=== PATIENT | male | born 1995 | race Caucasian/White ===

== ENCOUNTER 2020-02-04 08:20 | Emergency (ER) | payer OTHER, SELFPAY ==
[2020-02-04 08:24] VITALS: BMI 44.7
[2020-02-04 08:28] VITALS: BP 167/95; PULSE 76; RESP 18; TEMP 36.9; O2SAT 97
--- NOTE | 2020-02-04 08:54 | XR_ITS ---
WS: [id number] PORTABLE CHEST HISTORY: chest pain COMPARISON: 12/20/2018 Lungs are clear and well expanded. No pleural effusion or pneumothorax. Cardiac size: Normal. Mediastinum/Aorta: Normal mediastinum. No osseous abnormality seen. XR/XR chest 1V portable [id number] IMPRESSION: Unremarkable portable chest.
--- NOTE | 2020-02-04 08:54 | ECG_ITS ---
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 Measurements Intervals [place] Rate: 71 P: 32 [place]: 144 QRS: 52 QRSD: 105 T: 36 QT: 347 QTc: 379 Interpretive Statements SINUS RHYTHM Compared to ECG 12/20/2018 17:11:55 Sinus tachycardia no longer present Electronically Signed On 02-05-2020 16:28:28 CDT by Ramón Aburto M.D. [id number]
--- NOTE | 2020-02-04 08:54 | W.ED.CHESTPA ---
HPI - Chest Pain General: Chief Complaint: Chest Pain Stated Complaint: elevated bp Time Seen by Provider: 02/04/20 08:28 Source: patient Mode of arrival: ambulatory Limitations: no limitations History of Present Illness: HPI narrative: Patient is a 24-year-old male presents to ED today with a complaint of chest pain. Patient tells me he initially began noticing substernal pain earlier this morning while he was in a meeting at work. Patient states after work he was lifting some pipes that were fairly light but noticed he became short of breath. He states chest pain upon arrival has subsided for the most part. He is not complaining of shortness of breath at rest. Patient tells me earlier at work when he developed the chest pain he took his blood pressure and found it was 180s/90s. He states this is not fairly abnormal for him as he has taken his blood pressure several times over the last few months and states a normal blood pressure for him is 178/86. Patient has never sought evaluation for his hypertension. His primary care provider is Dr. Hedrick. Patient has not had any periods of prolonged inactivity. No recent surgery. He has no swelling to his lower extremities. He has not been running fevers. No cough. He states he has had a negative COVID test recently through work at [employer]. patient has noticed some GERD-like symptoms over the past week or so. MD complaint: chest pain Timing of current episode: other (improving ) Prior episodes: Yes Onset: during rest Pain location: substernal Pain radiation: none Relieving factors: nothing Exacerbating factors: nothing Associated symptoms: Reports no associated symptoms and dyspnea (noticed earlier today with activity ); Deny abdominal pain, fever(s), nausea, palpitations, syncope or vomiting Treatment prior to arrival: none Risk Factors: Coronary artery disease risk factors: hypertension Thoracic aortic dissection risk factors: none Review of Systems Const: Denies: fever(s), chills or body aches Eyes: Denies: change in vision, blurry vision, photophobia, floaters or seeing flashes Card: Reports: chest pain and dyspnea on exertion; Denies: palpitations, irregular heart rhythm, edema, swelling of feet/ankles, lightheadedness, syncope, pre-syncope, orthopnea, leg pain with exertion or acrocyanosis Resp: Reports: dyspnea (noticed earlier today with activity ); Denies: productive cough, non-productive cough, pain on inspiration, hemoptysis or chest congestion GI: Denies: abdominal pain, nausea, vomiting, heartburn or diarrhea : Denies: flank pain, difficulty urinating or dysuria Musc: Denies: neck pain, back pain or joint pain Skin/Breast: Denies: rash Neuro: Denies: headache(s), numbness in extremities, sensory changes or dizziness Physical Exam Const: COMMON NORMALS: no acute distress, patient oriented x3, no limitations and alert NUTRITIONAL APPEARANCE: obese morbidly obese ORIENTATION/CONSCIOUSNESS: Yes oriented to person, Yes oriented to place and Yes oriented to time HENMT: COMMON NORMALS: normocephalic and atraumatic HEAD & SCALP: normocephalic and atraumatic Chest: COMMONS NORMALS: normal inspection of the chest and normal palpation of entire chest wall Resp: COMMON NORMALS: normal respiratory effort and clear to auscultation bilaterally AUSCULTATION: clear to auscultation bilaterally Cardio: COMMON NORMALS: regular rate and regular rhythm RATE: regular rate RHYTHM: regular rhythm GI: COMMON NORMALS: Normal to inspection, nondistended, normoactive bowel sounds present, Soft to palpation, non-tender, No hepatosplenomegaly present and no masses PALPATION: Yes Soft to palpation and Yes No hepatosplenomegaly present : COMMON NORMALS: Yes no CVA tenderness BLADDER/KIDNEY EXAM: Yes no CVA tenderness Back/Pelvis: COMMON NORMALS: no CVA tenderness Extremity: COMMON NORMALS: normal to inspection, capillary refill normal, no clubbing, cyanosis or edema, no calf tenderness and no pedal edema GENERAL: Yes normal exam except as noted Neuro: BENI COMA SCALE: document GCS findings Beni coma scale eye opening: Spontaneous Beni coma scale verbal response: Orientated [place] coma scale motor response: Obey commands Beni coma scale total score: 15 COMMON NORMALS: patient oriented x3, CN's II-XII intact bilaterally, moves all extremities, no focal motor deficits, no sensory deficits noted and gait normal SENSORIUM/ORIENTATION: Yes alert, Yes oriented to person, Yes oriented to place and Yes oriented to time Skin: COMMON NORMALS: no rashes or lesions noted GENERAL SKIN EXAM: no rashes or lesions noted Course Vital Signs: Vital signs: Vital Signs Temperature 98.5 F 02/04/20 08:28 Pulse Rate 77 02/04/20 10:25 Respiratory Rate 18 02/04/20 10:25 Blood Pressure 147/88 02/04/20 10:25 Pulse Oximetry 96 02/04/20 10:25 MDM - Chest Pain MDM Narrative: Medical decision making narrative: Patient's cardiac work-up is normal here. He states he did gain relief from his chest discomfort after GI cocktail. Discussed using OTC therapies such as Zantac to see if this will help alleviate his symptoms should they return. I will place patient on low-dose lisinopril for his hypertension. Discussed keeping a blood pressure log and following up with PCP so they may adjust these medications as needed. Return to ED precautions given. Lab Data: Labs: Lab Results 02/04/20 02/04/20 02/04/20 Range/Units 09:05 09:05 09:07 WBC 5.2 (4.0-10.0) 10^3/ uL RBC 5.19 (4.1-5.3) 10^6/u L Hgb 14.5 (11.7-16.6) g/dL Hct 45.8 (42.0-52.0) % MCV 88.2 (80-94) fL MCH 27.9 L (28.0-34.0) pg MCHC 31.7 (30.0-36.0) g/dL RDW 13.2 (12.1-15.1) % Plt Count 226 (130-400) 10^3/c mm MPV 11.0 H (7.4-10.4) fL Neut % (Auto) 54.7 % Lymph % (Auto) 35.7 % Otero % (Auto) 5.2 % Eos % (Auto) 2.5 % Baso % (Auto) 1.7 % Neut # (Auto) 2.83 (1.8-7.7) 10^3/u L Lymph # (Auto) 1.9 (0.8-4.8) 10^3/u L Otero # (Auto) 0.3 (0.2-0.9) 10^3/u L Eos # (Auto) 0.1 (0.0-0.8) 10^3/u L Baso # (Auto) 0.1 (0.0-0.1) 10^3/u L Nucleated RBC % (a uto) 0 % Nucleated RBCs # 0.0 /100WBC Sodium 137 (136-145) mmol/L Potassium 4.4 (3.5-5.1) mmol/L Chloride 103 (98-107) mmol/L Carbon Dioxide 24 (22-29) mmol/L Anion Gap 14.4 (5-19) BUN 11 (6-20) mg/dL Creatinine 0.9 (0.7-1.2) mg/dL GFR Calculation 104.6 (90-130) mL/min Glucose 95 (65-115) mg/dL Calculated Osmolal ity 280 L (285-295) mOsm/k g Calcium 9.3 (8.5-10.5) mg/dL Total Bilirubin 0.4 (0.15-1.2) mg/dL AST 36 (0-40) U/L ALT 62 H (0-41) U/L Alkaline Phosphata se 78 (40-130) IU/L Troponin T Gen 5 n g/L 6 (0-15) ng/L Total Protein 7.6 (6.6-8.7) g/dL Albumin 4.8 (3.5-5.2) g/dL Globulin 2.8 (1.3-4.6) g/dL Imaging Data^: CXR: Radiologist's impression: [place] [address] XRay Report Signed Patient: Jerry Su Unit #: [id number] : 1995 Age/Sex: 24 / M ADM Date: 02/04/20 Loc: ER Room/Bed: Attending Dr: Ordering Provider/Ordering MD: Carri Goldstein Date of Service: 02/04/20 Procedure(s): XR chest 1V portable [id number] Accession Number(s): [id number] Report Number: [id number] WS: [id number] PORTABLE CHEST HISTORY: chest pain COMPARISON: 12/20/2018 Lungs are clear and well expanded. No pleural effusion or pneumothorax. Cardiac size: Normal. Mediastinum/Aorta: Normal mediastinum. No osseous abnormality seen. XR/XR chest 1V portable [id number] IMPRESSION: Unremarkable portable chest. Dictated By: Perla Haney DO Signed By: Perla Haney Tomasa ROD Signed Date/Time: 02/04/20915 DD/ 5 EKG Data^: EKG 1: EKG interpretation date: 02/04/20 EKG interpretation time: 08:39 Interpretation: Sinus rhythm Rate [address] elevation or depression changes noted Discharge Plan Discharge Patient Disposition: Home, Self-Care Clinical Impression: Chest pain, non-cardiac Hypertension Qualifiers: Hypertension type: essential hypertension Qualified Code(s): I10 - Essential (primary) hypertension Condition: Stable Prescriptions: New lisinopril 10 mg tablet 10 mg PO DAILY Qty: 30 RF: 0 No Action ibuprofen 400 mg Tablet 400 mg PO Q6H PRN (Reason: Pain (Scale Score 4-6)) RF: 0 Discharge Orders: Discharge Order (Routine); Ordered 02/04/20 Ordered By: Carri Goldstein Patient Instructions: Hypertension, Hypertension (ED) Activity Restrictions/Additional Instructions: As discussed please keep a blood pressure log twice daily to discuss with Dr. Hedrick in approximately 2 weeks so they may adjust medications accordingly. You may return to the emergency department for worsening chest pain, shortness of breath, difficulty breathing, any other concerns you may have. 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
[2020-02-04 09:10] VITALS: BP 165/95; PULSE 80; RESP 18; O2SAT 96
--- NOTE | 2020-02-04 09:10 | PC.NURSE ---
Radiology at bedside performing CXR at this time
[2020-02-04 09:13] LABS: Basophils # 0.1 10^3/uL (0.0-0.1); Basophils % 1.7 %; Eosinophils # 0.1 10^3/uL (0.0-0.8); Eosinophils % 2.5 %; Hematocrit 45.8 % (42.0-52.0); Hemoglobin 14.5 g/dL (11.7-16.6); Lymphocytes # 1.9 10^3/uL (0.8-4.8); Lymphocytes % 35.7 %; Mean Corpuscular HGB Conc 31.7 g/dL (30.0-36.0); Mean Corpuscular Hemoglobin 27.9 pg (28.0-34.0); Mean Corpuscular Volume 88.2 fL (80-94); Monocytes # 0.3 10^3/uL (0.2-0.9); Monocytes % 5.2 %; Neutrophils # 2.83 10^3/uL (1.8-7.7); Neutrophils % 54.7 %; Nucleated Red Blood Cells % 0 %; Platelet Count 226 10^3/cmm (130-400); Red Blood Count 5.19 10^6/uL (4.1-5.3); Red Cell Distribution Width 13.2 % (12.1-15.1); White Blood Count 5.2 10^3/uL (4.0-10.0)
[2020-02-04 09:27] LABS: Alanine Aminotransferase 62 U/L (0-41); Albumin Level 4.8 g/dL (3.5-5.2); Alkaline Phosphatase 78 IU/L (40-130); Anion Gap 14.4 (5-19); Aspartate Amino Transferase 36 U/L (0-40); Blood Urea Nitrogen 11 mg/dL (6-20); Calcium 9.3 mg/dL (8.5-10.5); Carbon Dioxide 24 mmol/L (22-29); Chloride 103 mmol/L (98-107); Globulin 2.8 g/dL (1.3-4.6); Glomerular Filtration Rate 104.6 mL/min (90-130); Glucose 95 mg/dL (65-115); Osmolality Calculated 280 mOsm/kg (285-295); Potassium 4.4 mmol/L (3.5-5.1); Sodium 137 mmol/L (136-145); Total Bilirubin 0.4 mg/dL (0.15-1.2); Total Protein 7.6 g/dL (6.6-8.7)
[2020-02-04 09:30] VITALS: BP 161/94; PULSE 79; RESP 18; O2SAT 96
[2020-02-04] MEDS: lidocaine 2% viscous 15 ML, aluminum-mag hydrox-simethicon 30 ML, sucralfate oral liq 1 GM PO (09:49)
[2020-02-04 10:06] LABS: Troponin T (5th) Once 6 ng/L (0-15)
[2020-02-04 10:25] VITALS: BP 147/88; PULSE 77; RESP 18; O2SAT 96
== END 2020-02-04 10:25 | disposition home or self-care (01) ==
PROVIDERS: Emergency Provider Physician Assistant; PCP Family Medicine
DX: R07.89 Other chest pain (principal); I10 Essential (primary) hypertension
CPT/HCPCS: 12345; 36415; 71045; 80053; 84484; 85025; 93005; 99281; 99283

== ENCOUNTER 2022-07-30 11:31 | Outpatient (CLI) | payer OTHER, SELFPAY ==
--- NOTE | 2022-07-30 | ECG_ITS ---
[facility] Test Date: 2022-07-30 Pat Name: Jerry Su Department: Room: Gender: Male Dexigraph Operator: Kaylynn James : 1995 Requested By: Parveen Ponce Order Number: [id number] Simpson MD: Juve Carpio M.D. Interpretive Statements NAME OF STUDY: TREADMILL STRESS TEST INDICATION: [Chest Pain, ] EXERCISE DATA: The patient was exercised by Durga protocol. Baseline heart rate was 82 beats per minute. Baseline blood pressure was 172/99 millimeters of mercury. Target heart rate was 165 beats per minute. Maximum heart rate achieved was 168, which was 101 percent of the target heart rate. Maximum blood pressure was 217/91 millimeters of mercury. Total exercise time was 7 minutes 11 seconds. Maximum METs achieved was 10.2 . The reason for ending the test was maximal effort achieved. The patient complained of shortness of breath and chest pain during the stress test, which then resolved at the end of the test. ELECTROCARDIOGRAM: BASELINE: Showed sinus rhythm, normal axis, no significant ST-T changes at the baseline noted. [] EXERCISE: At the peak exercise level, [] No significant ST-T changes suggestive of ischemia noted. [] RECOVERY: During the recovery period, heart rate dropped appropriately. No significant ST-T changes in the recovery suggestive of ischemia noted. [] CONCLUSION: 1. Exercise capacity good 2. Heart rate response was appropriate 3. Blood pressure response was hypertensive 4. Symptoms included chest pain or shortness of breath during exercise phase that resolved at the end of the test 5. Stress test did not show evidence of ischemia Electronically Signed On 08-12-2022 11:24:53 ELEVATOR CONDUCTOR by Juve Carpio M.D. [email or web address]/[id number]
[2022-07-30 11:49] VITALS: BMI 47.5
[2022-07-30 12:16] VITALS: BP 157/99; PULSE 96
== END 2022-07-30 11:32 | disposition home or self-care (01) ==
PROVIDERS: PCP Family Medicine; Visit Provider Family Medicine
DX: I20.9 Angina pectoris, unspecified (principal)
CPT/HCPCS: 93017

== ENCOUNTER 2023-08-29 12:24 | Emergency (ER) | payer OTHER, SELFPAY ==
[2023-08-29 12:43] VITALS: BP 127/78; PULSE 78; RESP 16; TEMP 36.4; O2SAT 97; BMI 45.3
--- NOTE | 2023-08-29 12:54 | CT_ITS ---
WS: [id number] CT ABDOMEN AND PELVIS WITH CONTRAST HISTORY: abd pain TECHNIQUE: Imaging performed of the abdomen and pelvis with IV contrast. Single phase imaging of the abdomen. Coronal and sagittal reformats are submitted. All CT scans at [facility] use at [address] one of these dose optimization techniques: automated exposure control; mA and/or kV adjustment per patient size (includes targeted exams where dose is matched to clinical indication); or iterative re construction. IV CONTRAST: Omnipaque 350; 100 mL IV. Oral contrast: No DLP: 1324.93 mGy.cm COMPARISON: None available. Lower thorax: Lung bases are clear. Heart is normal size. No hiatal hernia. Liver/biliary system: Mild hepatic steatosis with focal fatty sparing along the falciform ligament. N o mass or bile duct dilatation. Gallbladder: Normal. No gallstones or wall thickening. No pericholecystic fluid. Pancreas: Normal size pancreas and pancreatic duct. No adjacent inflammation. Spleen: Normal size spleen. No mass or infarct. Adrenal glands: Normal. Right kidney: Normal. Left kidney: Normal size kidney. There is mild anterior rotation of the kidney with no obstruction. Aorta: Normal. Lymphadenopathy: None. Free fluid: None. GI tract: Unremarkable. Normal appendix. No obstruction. Abdominal wall: Fat containing umbilical hernia. Pelvis: No free fluid or adenopathy within the pelvis. Bones: Unremarkable. IMPRESSION: 1. No acute abdomen or pelvic abnormalities are identified. 2. No GI tract obstruction. No adenopathy. No free fluid. 3. No renal obstruction.
[2023-08-29 12:57] LABS: Basophils % 0.4 %; Eosinophils % 0.6 %; Hematocrit 51.5 % (37-53); Lymphocytes # 1.9 10^3/uL (0.8-4.8); Lymphocytes % 41.3 %; Mean Corpuscular HGB Conc 30.9 g/dL (30-55); Mean Corpuscular Hemoglobin 28.2 pg (27-33); Mean Corpuscular Volume 91.3 fl (82-101); Mean Platelet Volume 11.1 fL (7.4-10.4); Monocytes # 0.5 10^3/uL (0.2-0.9); Monocytes % 9.6 %; Neutrophils # 2.23 10^3/uL (1.8-7.7); Neutrophils % 47.9 %; Nucleated Red Blood Cells % 0 %; Platelet Count 181 10^3/cmm (157-399); Red Blood Count 5.64 10^6/uL (3.85-5.65); Red Cell Distribution Width 13.2 % (12.1-15.1); White Blood Count 4.67 10^3/uL (3.29-11.43)
--- NOTE | 2023-08-29 12:57 | ED_ITS ---
HPI - Abdominal Pain 2 General: Chief Complaint: Abdominal Pain Stated Complaint: abd pain Time Seen by Provider: 08/29/23 12:43 Source: patient Mode of arrival: ambulatory Limitations: no limitations History of Present Illness: 28-year-old male states he been having h e states abdominal issues for over a month states that he had some epigastric pain decreased appetite he states he saw Dr. Hedrick at [facility] on Tuesday prescribed Protonix they informed he thought he may have an ulcer and was going to set him up for an EGD states he continue have epigastric pain denies any fevers Associated Symptoms: Denies chills, diarrhea, fever(s), nausea and vomiting Review of Systems 2 Const: Reports: change in appetite; Denies: fever(s), chills or body aches ENMT: Denies: throat pain or dental pain Card: Denies: chest pain Resp: Denies: dyspnea GI: Reports: abdominal pain; Denies: nausea, vomiting or diarrhea Musc: Denies: neck pain or back pain Skin/Breast: Denies: rash Neuro: Denies: headache(s) Physical Exam 2 Const: COMMON NORMALS: no acute distress, patient oriented x3 and healthy appearing HENMT: COMMON NORMALS: normocephalic and atraumatic HEAD & SCALP: n ormocephalic and atraumatic Neck/C-Spine: COMMON NORMALS: full ROM and supple Chest: COMMONS NORMALS: normal inspection of the chest Resp: COMMON NORMALS: normal respiratory effort Cardio: COMMON NORMALS: regular rate, regular rhythm and No murmurs present (Cardio) RATE: regular rate RHYTHM: regular rhythm GI: COMMON NORMALS: Normal to inspection, nondistended, normoactive bowel sounds present, Soft to palpation, non-tender and no masses PALPATION: Yes Soft to palpation Extremity: COMMON NORMALS: normal to inspection and full ROM Neuro: COMMON NORMALS: patient oriented x3, moves all extremities and no focal motor deficits Psych: COMMON NORMALS: mental status grossly normal, Normal thought process present and cooperative THOUGHT PROCESS: Normal thought process present Skin: COMMON NORMALS: no rashes or lesions noted and no wounds GENERAL SKIN EXAM: no rashes or lesions noted Course 2 Vital Signs: Vital signs: Vital Signs Temperature 97.6 F 08/29/23 12:43 Pulse Rate 78 08/29/23 12:43 Respiratory Rate 16 08/29/23 12:43 Blood Pressure 127/78 08/29/23 12:43 Pulse Oximetry 97 08/29/23 12:43 Oxygen Delivery Me thod Room Air 08/29/23 12:43 MDM - Abdominal Pain Medical Decision Making Patient presents here abdominal pain CT scan here is normal. Patient stable for discharge she is to follow-up with [facility] for an EGD as scheduled. Return if worsening. Medical Records I reviewed the patient's medical records. Lab Data I reviewed the patient's lab results. 08/29/23 12:48 08/29/23 12:48 Labs/Radiology: Laboratory Results WBC 4.67 10^3/uL (3.29-11.43) 08/29/23 12:48 RBC 5.64 10^6/uL (3.85-5.65) 08/29/23 12:48 Hgb 15.90 g/dL (11.27-16.99) 08/29/23 12:48 Hct 51.5 % (37-53) 08/29/23 12:48 MCV 91.3 fl (82-101) 08/29/23 12:48 MCH 28.2 pg (27-33) 08/29/23 12:48 MCHC 30.9 g/dL (30-55) 08/29/23 12:48 RDW 13.2 % (12.1-15.1) 08/29/23 12:48 Plt Count 181 10^3/cmm (157-399) 08/29/23 12:48 MPV 11.1 fL (7.4-10.4) H 08/29/23 12:48 Neut % (Auto) 47.9 % 08/29/23 12:48 Lymph % (Auto) 41.3 % 08/29/23 12:48 Nolan % (Auto) 9.6 % 08/29/23 12:48 Eos % (Auto) 0.6 % 08/29/23 12:48 Baso % (Auto) 0.4 % 08/29/23 12:48 Neut # (Auto) 2.23 10^3/uL (1.8-7.7) 08/29/23 12:48 Lymph # (Auto) 1.9 10^3/uL (0.8-4.8) 08/29/23 12:48 Nolan # (Auto) 0.5 10^3/uL (0.2-0.9) 08/29/23 12:48 Eos # (Auto) 0.0 10^3/uL (0.0-0.8) 08/29/23 12:48 Baso # (Auto) 0.0 10^3/uL (0.0-0.1) 08/29/23 12:48 Nucleated RBC % (auto) 0 % 08/29/23 12:48 Nucleated RBCs # 0.0 /100WBC 08/29/23 12:48 Sodium 137 mmol/L (136-145) 08/29/23 12:48 Potassium 4.0 mmol/L (3.5-5.1) 08/29/23 12:48 Chloride 99 mmol/L (98-107) 08/29/23 12:48 Carbon Dioxide 22 mmol/L (22-29) 08/29/23 12:48 Anion Gap 20.0 (5-19) H 08/29/23 12:48 BUN 15 mg/dL (6-20) 08/29/23 12:48 Creatinine 1.1 mg/dL (0.7-1.2) 08/29/23 12:48 GFR Calculation 80.3 mL/min (90-130) L 08/29/23 12:48 Glucose 79 mg/dL (65-115) 08/29/23 12:48 Calculated Osmolality 284 mOsm/kg (285-295) L 08/29/23 12:48 Calcium 9.1 mg/dL (8.5-10.5) 08/29/23 12:48 Total Bilirubin 0.9 mg/dL (0.15-1.2) 08/29/23 12:48 AST 72 U/L (0-40) H 08/29/23 12:48 ALT 41 U/L (0-41) 08/29/23 12:48 Alkaline Phosphatase 84 U/L (40-130) 08/29/23 12:48 Total Protein 8.4 g/dL (6.6-8.7) 08/29/23 12:48 Albumin 4.6 g/dL (3.5-5.2) 08/29/23 12:48 Globulin 3.8 g/dL (1.3-4.6) 08/29/23 12:48 Lipase 22 U/L (13-60) 08/29/23 12:48 All radiology interpretation(s) finalized by discharge Discharge Plan Discharge Patient Disposition: Home Clinical Impression: Abdominal pain Condition: Stable Prescriptions: New hydrocodone-acetaminophen 5-325 mg tablet 1 tab PO Q6H PRN (Reason: pain) Qty: 14 0RF ondansetron 4 mg tablet,disintegrating 4 mg PO Q6H PRN (Reason: nausea and vomiting) Qty: 14 0RF No Action pantoprazole 40 mg tablet,delayed release (DR/EC) 40 mg PO DAILY promethazine 25 mg tablet 25 mg PO Q6H hydrochlorothiazide 12.5 mg tablet 12.5 mg PO DAILY NyQuil 7.5-60-30-1,000 mg/30 mL Liquid 10 ml PO Q6H PRN (Reason: Sinus Symptoms) acetaminophen 500 mg Tablet 500 mg PO Q6H PRN (Reason: Pain) Discharge Orders: Discharge ED (Routine); Ordered 08/29/23 Ordered By: Mila Carmona Referrals: Parveen Hedrick MD [Primary Care Provider] - 1-3 days Discharge Diet: Advance as tolerated Discharge Activity: Resume usual activity Patient Instructions: Abdominal Pain (ED), Opioid Safety Coding Level of Care Code ED Toe Stapler for Rita Mathews
[2023-08-29] MEDS: ondansetron 2 mg/ML SDV 2 mL 4 MG IVP (13:07)
[2023-08-29] MEDS: sodium chloride 0.9% 1,000 ML 999 ML IV (13:07)
[2023-08-29 13:19] LABS: Alanine Aminotransferase 41 U/L (0-41); Albumin Level 4.6 g/dL (3.5-5.2); Alkaline Phosphatase 84 U/L (40-130); Aspartate Amino Transferase 72 U/L (0-40); Blood Urea Nitrogen 15 mg/dL (6-20); Calcium 9.1 mg/dL (8.5-10.5); Carbon Dioxide 22 mmol/L (22-29); Chloride 99 mmol/L (98-107); Globulin 3.8 g/dL (1.3-4.6); Glomerular Filtration Rate 80.3 mL/min (90-130); Glucose 79 mg/dL (65-115); Lipase 22 U/L (13-60); Osmolality Calculated 284 mOsm/kg (285-295); Sodium 137 mmol/L (136-145); Total Bilirubin 0.9 mg/dL (0.15-1.2); Total Protein 8.4 g/dL (6.6-8.7)
[2023-08-29] MEDS: iohexol 350 mg/mL 500 mL Btl (per mL) IV (14:00)
[2023-08-29 15:12] VITALS: BP 143/80; PULSE 70; O2SAT 94
== END 2023-08-29 15:14 | disposition home or self-care (01) ==
PROVIDERS: Emergency Provider Emergency Medicine; PCP Family Medicine
DX: R10.13 Epigastric pain (principal)
CPT/HCPCS: 36415; 74177; 80053; 83690; 85025; 96374; 99285; J2405; J7030; Q9967